=== PATIENT | female | born 1955 | race Native Hawaiian/Other Pacific Islander ===

== ENCOUNTER 2016-12-09 07:26 | Day surgery (SDC) | payer OTHER ==
[2016-12-09] MEDS ORDERED: Lactated Ringer's 500 ML IV ONE (08:19)
[2016-12-09 08:47] VITALS: TEMP 96.9
[2016-12-09] MEDS ORDERED: Propofol 10 mg/ml Inj (20 ML) ONE (09:06)
[2016-12-09 09:46] VITALS: BP 87/58; PULSE 71; RESP 16; O2SAT 96
== END 2016-12-09 13:54 | disposition home or self-care (01) ==
LOC: H.ENDO 07:26
PROVIDERS: ATTEND Internal Medicine Gastroenterology
DX: Z12.11 Encounter for screening for malignant neoplasm of colon (principal); I10 Essential (primary) hypertension; K64.8 Other hemorrhoids